=== PATIENT | male | born 1940 | race Caucasian/White ===

== ENCOUNTER 2018-12-09 08:28 | Outpatient (CLI) | payer OTHER | END 2018-12-09 23:59 | disposition home or self-care (01) | LOC: CARD 08:28 | PROVIDERS: ATTEND Nurse Practitioner Family | DX: G40.109 Localization-related (focal) (partial) symptomatic epilepsy and epileptic syndromes with simple partial seizures, not intractable, without status epilepticus (principal) | CPT/HCPCS: 95819 ==